=== PATIENT | male | born 1970 | race Hispanic/Latino ===

== ENCOUNTER → 2020-12-14 | Outpatient (CLI) | payer OTHER ==
[~2020-12-14] MED LIST: GLYBURIDE5 MG PO; METFORMIN HCL500 MG PO; OZEMPIC1 MG/0.75 SC; TRESIBA100 UNIT/1 PO; ZESTRIL2.5 MG PO
== END | DRG 951 ==
LOC: DX 21:32 → EDSTATUS 12-17 15:30
PROVIDERS: ATTEND Internal Medicine Gastroenterology
DX: Z01.812 Encounter for preprocedural laboratory examination (principal); Z20.822 Contact with and (suspected) exposure to COVID-19; Z01.818 Encounter for other preprocedural examination; D64.9 Anemia, unspecified
CPT/HCPCS: 93005; U0002